=== PATIENT | male | born 2000 | race Caucasian/White ===

== ENCOUNTER 2025-01-15 10:39 | Emergency (ER) | payer OTHER ==
[~2025-01-15] VITALS: Ht 172.7 cm; Wt 77.3 kg
[2025-01-15] MEDS ORDERED: CELE0.09 (11:14)
[2025-01-15] MEDS ORDERED: METH4PACK (11:14)
[2025-01-15] MEDS ORDERED: METH-1164 (11:14)
[2025-01-15] MEDS: KETOROLAC 60 MG/2 ML VIAL IM ONE (15:05)
[2025-01-15] MEDS: LIDOCAINE 5% PATCH TD ONE (15:06)
[2025-01-15] MEDS ORDERED: METH-1165 PO (17:24)
[2025-01-15] MEDS ORDERED: LIDO1PAD TOP (17:24)
[2025-01-15 17:32] VITALS: BP 108/54; TEMP 97.5; O2SAT 97
== END 2025-01-15 17:38 | disposition home or self-care (01) ==
LOC: M ED 10:39
DX: M54.16 Radiculopathy, lumbar region (principal); M54.50 Low back pain, unspecified; Z79.899 Other long term (current) drug therapy
CPT/HCPCS: 72148; 96372; 99283; J1885